=== PATIENT | female | born 1980 | race Two or more races ===

== ENCOUNTER 2020-09-30 09:47 | Outpatient (CLI) | payer OTHER | END 2020-09-30 09:53 | disposition home or self-care (01) | LOC: SONOGRAMA 09:47 | PROVIDERS: ATTEND Pathology Anatomic Pathology | DX: E04.8 Other specified nontoxic goiter (principal) ==

== ENCOUNTER 2024-08-10 09:59 | Outpatient (CLI) | payer OTHER | END 2024-08-10 10:08 | disposition home or self-care (01) | LOC: SONOGRAMA 09:59 | PROVIDERS: ATTEND Pathology Anatomic Pathology & Clinical Pathology | DX: D34 Benign neoplasm of thyroid gland (principal); E07.89 Other specified disorders of thyroid; E04.2 Nontoxic multinodular goiter ==